=== PATIENT | female | born 1990 | race Caucasian/White ===

== ENCOUNTER → 2018-12-24 | Outpatient (CLI) | payer BC | LOC: FIMAGING 11:42 | PROVIDERS: ATTEND Obstetrics & Gynecology | DX: Z31.69 Encounter for other general counseling and advice on procreation (principal); N96 Recurrent pregnancy loss; F43.10 Post-traumatic stress disorder, unspecified; F41.9 Anxiety disorder, unspecified; Z90.89 Acquired absence of other organs ==

== ENCOUNTER 2019-03-22 13:46 | Emergency (ER) | payer BC ==
--- NOTE | 2019-03-22 14:39 | EDPHY ---
H & P Stated Complaint: Pt accidentally lac L ant hand, bleed controlled Time Seen by Provider: 03/22/19 14:31 HPI/ROS: CHIEF COMPLAINT: Laceration HISTORY OF PRESENT ILLNESS: The patient is a 28-year-old female who was whittling an hour ago when she cut her left hand. She denies other injuries. Normal range of motion. Severity: Moderate Modifying factors: None REVIEW OF SYSTEMS: Constitutional: denies: chills, fever, recent illness, recent injury EENTM: denies: blurred vision, double vision, nose congestion Respiratory: denies: cough, shortness of breath Cardiac: denies: chest pain, Gastrointestinal/Abdominal: denies: abdominal pain, Genitourinary: denies: dysuria, frequency, hematuria, pain Musculoskeletal: denies: joint pain, muscle pain Skin: See HPI Neurological: denies: headache, numbness, paresthesia, tingling, dizziness, weakness Hematologic/Lymphatic: denies: blood clots, easy bleeding, easy bruising Immunologic/allergic: denies: HIV/AIDS, transplant 10 systems reviewed and negative except as noted EXAM: GENERAL: Well-appearing, well-nourished and in no acute distress. HEAD: Atraumatic, normocephalic. EYES: Pupils equal round and reactive to light, extraocular movements intact ENT: oropharynx clear without exudates. Moist mucous membranes. NECK: Normal range of motion. LUNGS: Breath sounds clear HEART: Regular rate and rhythm without murmurs, rubs or gallops. ABDOMEN: Soft, nontender BACK: No CVA tenderness, no spinal tenderness, step-offs or deformities EXTREMITIES: See diagram, Normal range of motion, no pitting or edema. No clubbing or cyanosis. NEUROLOGICAL: Cranial nerves II through XII grossly intact. Normal speech, normal gait. 5/5 strength, normal movement in all extremities, normal sensation PSYCH: Normal mood, normal affect. SKIN: Laceration see diagram Source: Patient Exam Limitations: No limitations - Personal History LMP (Females 10-55): 22-28 Days Ago Current Tetanus/Diphtheria Vaccine: Unsure - Medical/Surgical History Hx Asthma: No Hx Chronic Respiratory Disease: No Hx Diabetes: No Hx Cardiac Disease: No Hx Renal Disease: No Hx Cirrhosis: No Hx Alcoholism: No Hx HIV/AIDS: No Hx Splenectomy or Spleen Trauma: No Other PMH: appendectomy - Family History Significant Family History: No pertinent family hx - Social History Smoking Status: Former smoker Alcohol Use: None Constitutional: Initial Vital Signs Temperature (C) 36.9 C 03/22/19 13:52 Heart Rate 84 03/22/19 13:52 Respiratory Rate 16 03/22/19 13:52 Blood Pressure 121/77 H 03/22/19 13:52 O2 Sat (%) 96 03/22/19 13:52 O2 Delivery Mode Room Air Allergies/Adverse Reactions: Penicillins Allergy (Verified 03/22/19 13:51) ED Images - Extremities Hands Front Left/Right: 1 - 2 cm laceration, 1 cm deep. No visible neurovascular or tendon injury. Normal range of motion. Medical Decision Making Procedures: Procedure: Laceration repair. Verbal consent was obtained from the patient. The left hand laceration was anesthetized with 1% lidocaine with epi and bicarbonate locally infiltrated. The wound was irrigated copiously according to protocol, draped and explored to its base. It was approximately 1/2 cm deep. There were no deep structures involved. No tendon, nerve, or vascular injury was identified when explored through full range of motion. No foreign body was identified. The wound was repaired with 5.0 Prolene, 7 sutures, interrupted. The wound repair was simple. The procedure was performed by myself. A dressing was then placed with sterile gauze and bacitracin. ED Course/Re-evaluation: Patient tolerated suture repair. Discussed suture care and removal in 10 days. She received tetanus vaccine as well. She declines further workup or testing and is eager to go home. Normal range of motion and sensation in her fingers and thumb. Differential Diagnosis: Partial list of the Differential diagnosis considered include but were not limited to; laceration, foreign body and although unlikely based on the history and physical exam, I also considered tendon injury, vascular injury. I discussed these differential diagnoses and the plan with the patient as well as the usual and expected course. The patient understands that the diagnosis is provisional and that in medicine we are not always correct and that further workup is often warranted. Usual and customary warnings were given. All of the patient's questions were answered. The patient was instructed to return to the emergency department should the symptoms at all worsen or return, otherwise to followup with the physician as we discussed. - Data Points Medications Given: Discontinued Medications Diphtheria/Tetanus/Acell Pertussis (Boostrix) 0.5 ml IM .ONCE ONE Stop: 03/22/19 14:42 Last Admin: 03/22/19 14:55 Dose: 0.5 ml Departure - Departure Disposition: Home, Routine, Self-Care Clinical Impression: Laceration Condition: Good Instructions: Care For Your Stitches (ED), Laceration (ED) Additional Instructions: Have your stitches removed in 10 days Referrals: NONE *PRIMARY CARE P,. [Primary Care Provider] - As per Instructions Rocio Rouse MD [Medical Doctor] - As per Instructions
[2019-03-22] MEDS ORDERED: TDAP ADULT 0.5 ML INJ (BOOSTRIX) IM ONE (14:41)
[2019-03-22 15:15] VITALS: BP 124/71
== END 2019-03-22 15:14 | disposition home or self-care (01) ==
PROC: 0HQGXZZ Repair Left Hand Skin, External Approach (ICD-10-PCS; principal; 2019-03-22)
DX: S61.412A Laceration without foreign body of left hand, initial encounter (principal); W26.9XXA Contact with unspecified sharp object(s), initial encounter; Z23 Encounter for immunization; Z87.891 Personal history of nicotine dependence; Z90.89 Acquired absence of other organs